=== PATIENT | female | born 1970 | race Caucasian/White ===

== ENCOUNTER 2016-09-26 18:13 | Emergency (ER) | payer OTHER ==
[2016-09-26 19:29] VITALS: BP 121/70
--- NOTE | 2016-09-26 19:41 | UC ---
Throat Pain/Nasal [place] HPI - HPI Summary HPI Summary: cough off and on for 6 weeks, sometimes productive, associated with fatigue and malaise. No shortness of breath or chest pain. Albutero helps with the cough, also using robitussin. Has decreased smoking but has a long hx of smoking. Sore throat x 4 days with difficulty swallowing. Has coughed to the point of vomiting, sometimes has rib pain secondary to cough. - History of Current Complaint Chief Complaint: UCGeneralIllness Stated Complaint: SORE THROAT/COUGH Time Seen by Provider: 09/26/16 19:31 Hx Obtained From: Patient Hx Last Menstrual Period: had ablation Onset/Duration: Gradual Onset, Lasting Weeks - 4+ Severity: Moderate Cough: Nonproductive - for the most part Associated Signs & Symptoms: Positive: Dysphagia, Wheezing, Hoarseness, Sinus Discomfort - Epiglottits Risk Factors Epiglottis Risk Factors: Negative - Allergies/Home Medications Allergies/Adverse Reactions: Allergies Allergy/AdvReac Type Severity Reaction Status Date / Time Codeine Allergy Intermediate Hives Verified 09/26/16 19:29 PMH/Surg Hx/FS Hx/Imm Hx Endocrine History Of: Denies: Diabetes Cardiovascular History Of: Reports: Cardiac Disorders - palpitations, Hypertension Denies: Pacemaker/ICD Respiratory History Of: Reports: Asthma - hx of bronchitis and wheezing with respiratory illnesses. GI/ History Of: Denies: Renal Disease - Surgical History Surgical History: Yes Surgery Procedure, Year, and Place: Tubal Ligation, - Family History Known Family History: Positive: Hypertension - Social History Occupation: Employed Full-time Lives: With Family Alcohol Use: Occasionally Alcohol Amount: 3-4 TIMES PER YR Substance Use Type: None Smoking Status (MU): Light Every Day Tobacco Smoker Type: Cigarettes Amount Used/How Often: < 1/2 PPD Length of Time of Smoking/Using Tobacco: 28 Years Have You Smoked in the Last Year: Yes Household Exposure Type: Cigarettes - Immunization History Most Recent Influenza Vaccination: none Most Recent Tetanus Shot: UNKNOWN Review of Systems Constitutional: Fatigue Skin: Negative Eyes: Negative ENT: Sore Throat Respiratory: Cough Cardiovascular: Palpitations - uses diltiazem to suppress Gastrointestinal: Negative Genitourinary: Negative Motor: Negative Neurovascular: Negative Musculoskeletal: Negative Neurological: Headache - hx of chronic migraine, on topiramate. Psychological: Negative All Other Systems Reviewed And Are Negative: Yes Physical Exam Triage Information Reviewed: Yes Appearance: Ill-Appearing - mildly unwell Vital Signs: Initial Vital Signs Temp 98.7 F 09/26/16 19:24 Pulse 60 09/26/16 19:24 Resp 17 09/26/16 19:24 BP 121/70 09/26/16 19:24 Pulse Ox 100 09/26/16 19:24 Eyes: Positive: Conjunctiva Clear ENT: Positive: Pharyngeal erythema Dental Exam: Normal Neck: Positive: Supple, Nontender, No Lymphadenopathy Respiratory: Positive: Decreased breath sounds - to both bases, mildly prolonged expiration and wheeze., Wheezing Cardiovascular: Positive: RRR, No Murmur Musculoskeletal Exam: Normal Neurological Exam: Normal Neurological: Positive: Alert Psychological Exam: Normal Throat Pain/Nasal Course/Dx - Course Course Of Treatment: zithromax, more regular use of albuterol - Differential Dx/Diagnosis Differential Diagnosis/HQI/PQRI: Laryngitis, Pharyngitis, URI, Other - bronchitis Provider Diagnoses: bronchitis. smoking dependency Discharge - Discharge Plan Condition: Stable Disposition: HOME Prescriptions: Albuterol HFA INHALER* [Ventolin HFA Inhaler*] 2 puff INH Q6H PRN #1 mdi PRN Reason: Wheezing Azithromyxin NAOMI (NF) [Z-Naomi (Zithromax) 250 mg tabs #6] 2 tab PO .TODAY, THEN 1 DAILY #6 tab Patient Education Materials: Acute Bronchitis (ED) Additional Instructions: Use albuterol 4 times daily for several days to help to decrease cough Take full course of zithromax. If the cough does not improve within a week, follow up with your primary care provider for more testing.
== END 2016-09-26 20:01 | disposition home or self-care (01) ==
LOC: UCCORT 18:13
DX: J40 Bronchitis, not specified as acute or chronic (principal); Z88.5 Allergy status to narcotic agent; F17.210 Nicotine dependence, cigarettes, uncomplicated
CPT/HCPCS: 99212; G0463

== ENCOUNTER 2016-11-30 14:04 | Emergency (ER) | payer OTHER ==
[2016-11-30 15:29] VITALS: BP 125/68
--- NOTE | 2016-11-30 15:34 | UC ---
FLU HPI - History of Current Complaint Stated Complaint: FLU SXS Time Seen by Provider: 11/30/16 15:27 Hx Obtained From: Patient Hx Last Menstrual Period: had ablation ?: No Onset/Duration: Gradual Onset - on friday with mild sore throat but hard cough. , Worse Since - with fevers, chills, headache, sorethroat, muscle aches and ongoing cough. Severity Currently: Moderate Severity Initially: Severe Associated Signs & Symptoms: Positive: Fever, Myalgia, Cough, Sore Throat, Nasal Congestion, Headache, Vomiting - post tussive. Related Hx: Smoking - Allergy/Home Medications Allergies/Adverse Reactions: Allergies Allergy/AdvReac Type Severity Reaction Status Date / Time Codeine Allergy Intermediate Hives Verified 11/30/16 15:29 Home Medications: Home Medications Acetaminophen [Extra Strength Acetaminop] 2 tab PO Q6HR PRN 11/30/16 [History Confirmed 11/30/16] PMH/Surg Hx/FS Hx/Imm Hx Endocrine History Of: Denies: Diabetes Cardiovascular History Of: Reports: Cardiac Disorders - palpitations, Hypertension Denies: Pacemaker/ICD Respiratory History Of: Reports: Asthma - hx of bronchitis and wheezing with respiratory illnesses. GI/ History Of: Denies: Renal Disease Neurological History Of: Reports: Migraine - Surgical History Surgical History: Yes Surgery Procedure, Year, and Place: Tubal Ligation, 1998, [place] - Family History Known Family History: Positive: Cardiac Disease, Hypertension, Diabetes - Social History Occupation: Employed Full-time Lives: With Family Alcohol Use: Occasionally Alcohol Amount: 3-4 TIMES PER YR Substance Use Type: None Smoking Status (MU): Light Every Day Tobacco Smoker Type: Cigarettes Amount Used/How Often: < 1/2 PPD Length of Time of Smoking/Using Tobacco: 28 Years Have You Smoked in the Last Year: Yes Household Exposure Type: Cigarettes - Immunization History Most Recent Influenza Vaccination: none Most Recent Tetanus Shot: UNKNOWN Review of Systems Constitutional: Fever Eyes: Eye Redness ENT: Sore Throat, Nasal Discharge Respiratory: Shortness Of Breath, Cough Cardiovascular: Chest Pain Musculoskeletal: Myalgia Neurological: Headache All Other Systems Reviewed And Are Negative: Yes Physical Exam Triage Information Reviewed: Yes Appearance: No Pain Distress, Well-Nourished, Ill-Appearing Vital Signs Reviewed: Yes Eyes: Positive: Conjunctiva Inflamed - mildly OU ENT: Positive: Pharynx normal, Nasal congestion - with allergic changes., TMs normal Neck exam: Normal Respiratory: Positive: Wheezing - expiratory wheeze with coughing Cardiovascular Exam: Normal Musculoskeletal Exam: Normal Neurological Exam: Normal Psychological Exam: Normal Skin Exam: Normal Flu Course/Dx - Differential Dx/Diagnosis Differential Diagnosis/HQI/PQRI: Bronchitis, Upper Respiratory Infection Provider Diagnoses: Acute URI. Acute bronchospasm Discharge - Discharge Plan Condition: Stable Disposition: HOME Prescriptions: predniSONE TAB* [Deltasone TAB*] 20 mg PO DAILY #18 tab Patient Education Materials: Upper Respiratory Infection (ED), Bronchospasm (ED ) Forms: *Work Release Additional Instructions: Smoking Cessation Tricks. 1. Cut down by 1 cigarette per day every 2-3 days. Write the number of smokes for that day on the calendar. 2. Identify triggers to smoking: after meals, on the phone, in the car, with coffee, on breaks at work, etc. 3. Formulate a plan with a behavior to replace the smoking. Fireballs in the car , doodle pad on the phone, flavored creamer for the coffee, go for a walk after a meal or on break at work. 4. For stress smokes do deep breathing relaxation. Breath deep in through the nose hold the breath in for a few seconds then breath out slowly through the mouth. [employer] SINUS RINSE: CHECK OUT AT [employer] Saline nasal wash helps with mucous, allergies and congestion. It can be used up to twice a day or only as needed. Use lukewarm tap water. It does not have to be sterilized or distilled water. Do 1/3 on each side and snort out of both nostrils. Repeat the process with 1/6 of the bottle on each side with snorting in between to finish the solution in the bottle
[2016-11-30] MEDS ORDERED: predniSONE TAB* 20 MG PO ONE (15:41)
[2016-11-30] MEDS ORDERED: Albuterol 2.5 MG/3 ML NEB.SOL* (0.083%) INH ONE (15:41)
[2016-11-30] MEDS ORDERED: Ipratropium 0.5MG/2.5ML NEB* 0.5 MG/2.5 ML NEB.SOLN INH ONE (15:41)
== END 2016-11-30 16:32 | disposition home or self-care (01) ==
LOC: UCCORT 14:04
DX: J06.9 Acute upper respiratory infection, unspecified (principal); J98.01 Acute bronchospasm; R00.2 Palpitations; I10 Essential (primary) hypertension; G43.909 Migraine, unspecified, not intractable, without status migrainosus; Z88.5 Allergy status to narcotic agent; F17.210 Nicotine dependence, cigarettes, uncomplicated
CPT/HCPCS: 87502; 99213; G0463; J7512; J7644

== ENCOUNTER 2017-12-20 15:42 | Emergency (ER) | payer OTHER ==
[2017-12-20 17:26] VITALS: BP 112/70
--- NOTE | 2017-12-20 17:50 | UC ---
Respiratory Complaint HPI - HPI Summary HPI Summary: c/o dry continuous cough for the past week, non responsive to OCD, she states she sprained a muscle on the left side of her ribcage from coughing so much. Denies fever, runny nose, vomiting/diarrhea. She states she stopped smoking these days. - History of Current Complaint Chief Complaint: UCGeneralIllness Stated Complaint: COUGH,CONGESTION Time Seen by Provider: 12/20/17 17:20 Hx Obtained From: Patient Hx Last Menstrual Period: had ablation ?: No Onset/Duration: Gradual Onset, Lasting Days Timing: Constant Severity Initially: Moderate Severity Currently: Moderate Pain Intensity: 6 Alleviating Factors: Bronchodilator Associated Signs And Symptoms: Positive: Negative Related History: Seasonal Allergies - Risk Factors Pulmonary Embolism Risk Factors: Negative Cardiac Risk Factors: Smoking Pseudomonas Risk Factors: Negative Tuberculosis Risk Factors: Negative - Allergies/Home Medications Allergies/Adverse Reactions: Allergies Allergy/AdvReac Type Severity Reaction Status Date / Time codeine Allergy Intermediate Hives Verified 12/20/17 17:24 PMH/Surg Hx/FS Hx/Imm Hx Previously Healthy: Yes Neurological History: Migraine Psychological History: Anxiety - Surgical History Surgical History: Yes Surgery Procedure, Year, and Place: Tubal Ligation, 1998, [place] - Family History Known Family History: Positive: Cardiac Disease, Hypertension, Diabetes - Social History Alcohol Use: Occasionally Alcohol Amount: 3-4 TIMES PER YR Substance Use Type: None Smoking Status (MU): Light Every Day Tobacco Smoker Type: Cigarettes Amount Used/How Often: < 1/2 PPD Length of Time of Smoking/Using Tobacco: 28 Years Have You Smoked in the Last Year: Yes Household Exposure Type: Cigarettes - Immunization History Most Recent Influenza Vaccination: none Most Recent Tetanus Shot: UNKNOWN Review of Systems Respiratory: Cough All Other Systems Reviewed And Are Negative: Yes Physical Exam Triage Information Reviewed: Yes Appearance: Well-Appearing, No Pain Distress, Well-Nourished Vital Signs: Initial Vital Signs Temp 98.5 F 12/20/17 17:20 Pulse 65 12/20/17 17:20 Resp 14 12/20/17 17:20 BP 112/70 12/20/17 17:20 Pulse Ox 100 12/20/17 17:20 Vital Signs Reviewed: Yes Eyes: Positive: Conjunctiva Clear ENT: Positive: Hearing grossly normal, Pharynx normal, TMs normal, Uvula midline Neck: Positive: Supple, Nontender, No Lymphadenopathy Respiratory: Positive: Chest non-tender, Lungs clear, Normal breath sounds, No respiratory distress Cardiovascular: Positive: RRR, No Murmur, Pulses Normal UC Diagnostic Evaluation - Laboratory O2 Sat by Pulse Oximetry: 100 Respiratory Course/Dx - Course Course Of Treatment: acute bronchitis, previous history of reactive airway disease, start flovent diskus as prescribed, oral hydration, continue to abstain from smoking, f/u 2 weeks with PCP - Differential Dx/Diagnosis Provider Diagnoses: acute bronchitis Discharge - Sign-Out/Discharge Documenting (check all that apply): Discharge/Admit/Transfer - Discharge Plan Condition: Stable Disposition: HOME Prescriptions: Fluticasone DISKUS 250 MCG(NF) [Flovent Diskus 250 MCG(NF)] 1 puff INH BID 7 Days #1 diskus Patient Education Materials: Fluticasone (By breathing), Acute Bronchitis (ED) Referrals: Mehnaz Wilson NP [Primary Care Provider] - - Billing Disposition and Condition Condition: STABLE Disposition: HOME
== END 2017-12-20 17:49 | disposition home or self-care (01) ==
LOC: UCCORT 15:42
DX: J20.9 Acute bronchitis, unspecified (principal); Z88.5 Allergy status to narcotic agent; F17.210 Nicotine dependence, cigarettes, uncomplicated
CPT/HCPCS: 99212; G0463

== ENCOUNTER 2018-03-26 15:15 | Emergency (ER) | payer OTHER ==
--- NOTE | 2018-03-26 15:41 | UC ---
Lower Extremity/Ankle HPI - HPI Summary HPI Summary: 47 yo female presents with worsening right knee pain over the last 2 days. She tells me that she has a history of pain in this right knee and has been told in the past that she has arthritis. Has had steroid injections with good relief of pain. 2 days ago she was driving back from [place] and early on in her return trip, she began to have "aching" right knee pain. She says that the pain is made worse but going up and down stairs, squatting, and kneeling on her knee. She took 800mg ibuprofen for pain that did not help. She is ambulatory without assistance or limp. She does smoke daily. Denies numbness, tingling, injury, or SOB. - History of Current Complaint Stated Complaint: RIGHT LEG COMPLAINT Time Seen by Provider: 03/26/18 15:41 Hx Obtained From: Patient Hx Last Menstrual Period: had ablation Severity Initially: Severe Severity Currently: Severe Pain Intensity: 9 Pain Scale Used: 0-10 Numeric Able to Bear Weight: Yes - Allergies/Home Medications Allergies/Adverse Reactions: Allergies Allergy/AdvReac Type Severity Reaction Status Date / Time codeine Allergy Intermediate Hives Verified 03/26/18 15:45 Home Medications: Home Medications Hydroxychloroquine TAB* [Plaquenil TAB*] 400 mg PO BID 03/26/18 [History Confirmed 03/26/18] PMH/Surg Hx/FS Hx/Imm Hx - Additional Past Medical History Additional PMH: Lupus Migraines - Surgical History Surgical History: Yes Surgery Procedure, Year, and Place: Tubal Ligation, 1998, [place] - Family History Known Family History: Positive: Cardiac Disease, Hypertension, Diabetes - Social History Occupation: Employed Full-time Lives: With Family Alcohol Use: Occasionally Alcohol Amount: 3-4 TIMES PER YR Substance Use Type: None Smoking Status (MU): Light Every Day Tobacco Smoker Type: Cigarettes Amount Used/How Often: < 1/2 PPD Length of Time of Smoking/Using Tobacco: 28 Years Have You Smoked in the Last Year: Yes Household Exposure Type: Cigarettes - Immunization History Most Recent Influenza Vaccination: none Most Recent Tetanus Shot: UNKNOWN Review of Systems Constitutional: Negative Skin: Negative Respiratory: Negative Cardiovascular: Negative Motor: Negative Neurovascular: Negative Musculoskeletal: Other: - Right knee pain Neurological: Negative Psychological: Negative All Other Systems Reviewed And Are Negative: Yes Physical Exam - Summary Physical Exam Summary: GENERAL: NAD. WDWN. No pain distress. SKIN: No rashes, sores, lesions, or open wounds. CHEST: No accessory muscle use. Breathing comfortably and in no distress. CV: . Pulses intact popliteal, PT, and DP. Brisk cap refill. MSK: RIGHT KNEE: Mild TTP about the knee joint anterior>posterior. Mild crepitus at patella. FROM. Strength 5/5. No edema or obvious bony deformities. Negative Petey, A/P drawer, Beatris, and varus/valgus stress. Negative Fabby sign. NTTP right calf. No leg edema or varicose veins on right leg. NEURO: Alert. Sensations intact and symmetric B/L LEs PSYCH: Age appropriate behavior. Triage Information Reviewed: Yes Vital Signs: Vital Signs: Temp Pulse Resp BP Pulse Ox 98.6 F 80 16 149/73 100 03/26/18 15:35 03/26/18 15:35 03/26/18 15:35 03/26/18 15:35 03/26/18 15:35 Vital Signs Reviewed: Yes Lower Extremity Course/Dx - Course Course Of Treatment: Suspect right knee pain due to arthritis. She does have risk factors for DVT such as smoking, recent travel, and lupus. She declines XR today and refuses to be transferred to the ER for potential US to eval for DVT. She declines crutches or knee brace. She also declines time off work to RICE her knee. She is asking for pain medication. I advised her to take tylenol for her pain and will refer her to Orthopedics for further eval and treatment of her knee. Strongly advised that if she develops SOB, leg swelling, or increased pain to not wait to go to the ER. Pt agreeable with plan. Wells' Criteria score is 0 for DVT. - Differential Dx/Diagnosis Provider Diagnoses: Right knee pain Discharge - Sign-Out/Discharge Documenting (check all that apply): Patient Departure - Discharge Plan Condition: Stable Disposition: HOME Patient Education Materials: Patellofemoral Pain Syndrome (ED) Referrals: Mehnaz Wilson NP [Primary Care Provider] - Jyoti Kent MD [Medical Doctor] - As Soon As Possible Seemant,MD Bee [Medical Doctor] - As Soon As Possible Additional Instructions: If you develop a fever, shortness of breath, chest pain, new or worsening symptoms - please call your PCP or go to the ED. Your blood pressure was high at todays visit. Please see your primary provider within 4 weeks for recheck and re-evaluation. - Billing Disposition and Condition Condition: STABLE Disposition: Home
[2018-03-26 15:45] VITALS: BP 149/73
== END 2018-03-26 16:07 | disposition home or self-care (01) ==
LOC: UCCORT 15:15
DX: M25.561 Pain in right knee (principal); M32.9 Systemic lupus erythematosus, unspecified; F17.210 Nicotine dependence, cigarettes, uncomplicated; Z53.29 Procedure and treatment not carried out because of patient's decision for other reasons; Z79.899 Other long term (current) drug therapy; Z88.5 Allergy status to narcotic agent
CPT/HCPCS: 99211; G0463

== ENCOUNTER 2018-05-04 10:14 | Day surgery (SDC) | payer OTHER ==
[~2018-05-04 10:14] MED LIST: Buffered Lidocaine 0.9% SYRIN* 5 ML/SYR SYRINGE INTRADERM ONE; Sodium Citrate/Citric Acid* 15 ML UDC PO ONE
[2018-05-04] MEDS ORDERED: Sodium Citrate/Citric Acid* 15 ML UDC ONE (10:36)
[2018-05-04] MEDS ORDERED: ceFAZolin 2 GM in NS PREMIX(*) 2 GM/100 ML BAG IVPB ONE (10:39)
[2018-05-04] MEDS ORDERED: Midazolam* 1 MG/ML 2 ML VIAL (2 MG) ONE (11:15)
[2018-05-04] MEDS ORDERED: fentaNYL* 50 MCG/ML 2 ML VIAL (100 MCG VIAL) ONE ×2 (11:15→13:05)
[2018-05-04] MEDS ORDERED: Bupivacaine 0.5% SDV PF* 30ML VIAL ONE (11:25)
[2018-05-04] MEDS ORDERED: Propofol* 10 MG/ML 20 ML BTL IV PUSH ONE (11:26)
[2018-05-04] MEDS ORDERED: Ketorolac INJ* 30 MG/ML 1 ML VIAL IV PRN (13:00)
[2018-05-04] MEDS ORDERED: Naloxone* 0.4 MG/ML 1 ML VIAL IV PRN (13:00)
[2018-05-04] MEDS ORDERED: Ondansetron INJ* 2 MG/ML VIAL IV PRN (13:00)
[2018-05-04] MEDS ORDERED: Ketorolac INJ* 30 MG/ML 1 ML VIAL ONE (13:05)
[2018-05-04] MEDS: fentaNYL* 50 MCG/ML 2 ML VIAL (100 MCG VIAL) IV PRN ×3 (13:16→13:41)
[2018-05-04 14:15] VITALS: BP 131/82
--- NOTE | 2018-05-05 03:55 | OP ---
DATE OF OPERATION: 05/04/18 - [facility] DATE OF : 72 SURGEON: Jim Molina MD EXTRACT OPERATOR: ZAHRAA Austin PRE-OP DIAGNOSIS: Chronic insertional tendinosis, right Achilles with large posterior calcaneal spur. POST-OP DIAGNOSIS: Chronic insertional tendinosis, right Achilles with large posterior calcaneal spur. OPERATIVE PROCEDURE: Calcaneal ostectomy, right side with advancement of the Achilles tendon. DESCRIPTION OF PROCEDURE: The patient was taken to the operating room where prone positioning used, we made an 8 cm longitudinal incision just medial to the Achilles and the posterior calcaneus. We traced with a 15 blade around the insertion the Achilles, reflecting it off the posterior aspect of the calcaneus. We then used a microsagittal saw to remove the large retrocalcaneal bursa with the large calcaneal spur. We then exposed proximally near the gastroc junction and a 6 cm V incision was made through the Achilles. Just the tendinous portion was incised with distal retraction regained about 2.5 cm of length. We then repaired the V- Y portion with interrupted 2-0 Vicryl suture. We then reattached the tendon distally using #1 Ethibond sutures through bone. Two pairs of sutures were passed through the calcaneus, exiting the plantar cortex and brought up into the wound. We then tied both of these over the posterior calcaneus and this reattached the tendon. We then irrigated thoroughly closing the subcu tissue with 2-0 Vicryl, jenise for the skin and a compression dressing plaster splint applied. [id number]/[facility] #: [id number] PADMINI
== END 2018-05-04 14:17 | disposition home or self-care (01) ==
LOC: OR 10:14
PROVIDERS: ATTEND Orthopaedic Surgery
DX: M76.61 Achilles tendinitis, right leg (principal); M77.31 Calcaneal spur, right foot; Z72.0 Tobacco use; I73.00 Raynaud's syndrome without gangrene; M32.9 Systemic lupus erythematosus, unspecified
CPT/HCPCS: A9270-GY; C1776; J0690; J1885; J2250; J2704; J3010

== ENCOUNTER 2019-06-13 13:23 | Emergency (ER) | payer OTHER ==
--- OUTSIDE RECORDS SUMMARY | 2019-06-13 14:01 | XMS REPORT | Continuity of Care Document ---
:1970 External Reference #:[id number] Author Name Lyric Porras MD, PHD Address [address] [place] [address], [address] [place] [id number] Care Team Providers Name Role Phone Kenney Mishra MD - Neurology Care Team Information Brewery Pumper [phone] Eliel Son MD - Surgery Care Team Information [employer] [phone] Lyric Porras MD, PHD - Family Care Team Information [employer] Medicine Problems Active Problems Provider Date Benign essential hypertension Lilia Desir MD Onset: 09/05/2012 Paroxysmal supraventricular Simon, Kalie Mcclain, MSN, Onset: 05/31/2013 tachycardia WELDING OPERATOR Hyperlipidemia Chyna Parker, PARTS SPECIALIST Onset: 08/01/2011 Anxiety state Chyna Parker, PARTS SPECIALIST Onset: 08/17/2011 Localized, primary osteoarthritis of Kenney Vail MD, FACS Onset: 01/28 the shoulder region Brachial neuritis Kenney Vail MD, FACS Onset: 01/28/2013 Displacement of cervical Kenney Vail MD, FACS Onset: 03/10/2013 intervertebral disc without myelopathy Cervical spondylosis without Kenney Vail MD, FACS Onset: 03/10/2013 myelopathy Enthesopathy of hip region Kenney Vail MD, FACS Onset: 05/11/2014 Malaise and fatigue Pete Cordova M.D., Onset: 06/01/2014 [facility] Low back pain Kenney Vail MD, FACS Onset: 07/27/2014 Localized, primary osteoarthritis Kenney Vail MD, FACS Onset: 2013 Tobacco user Katie Wilson WELDING OPERATOR Onset: 11/20/2016 Systemic lupus erythematosus Katie Wilson, WELDING OPERATOR Onset: 12/10/2017 Note: Document: 12/04/17 - Consult Rheumatology Female climacteric state Katie Wilson FNP Onset: 04/20/2018 Migraine Katie Wilson, WELDING OPERATOR Onset: 11/08/2018 Achilles tendinitis Katie Wilson WELDING OPERATOR Onset: 02/28/2019 Note: right Document: 01/06/19 - Orthopedic Follow Up Note Cervical spondylosis Lyric Porras MD, PHD Onset: 03/30/2019 Social History Type Date Description Comments Sex Unknown Tobacco Use Start: Unknown currently smokes 1/2 Pack Daily Cigarette Use Pack Years - 20 ETOH Use Drinks Alcoholic Beverages Rarely Tobacco Use Start: Unknown Patient is a current smoker, smokes every day Tobacco Use Start: Unknown Smokes 1/2 PPD Smoking Status Reviewed: 05/03/19 Smokes 1/2 PPD Allergies, Adverse Reactions, Alerts Active Allergies Reaction Severity Comments Date Codeine hives 01/28/2013 Inactive Allergies NKDA 02/26/2012 Medications Active Medications SIG Qnty Indications Ordering Date Provider Amoxicillin 1 tab by mouth 14tabs J01.90 Lyric Porras, 05/03/2019 875mg twice a day , PHD Tablets Saline Nasal [place] 2 sprays 1units J01.90 Lyric Porras, 05/03/2019 intranasal every 2 , PHD 0.65% Solution hours congestion Gabapentin 1-2 by mouth three 60caps N95.1 Lyric Porras, 05/03/2019 400mg times a day at , PHD Capsules bedtime Mucinex 1 tab by mouth 30tabs J01.90 Lyric Porras, 05/03/2019 600mg Tablets twice a day , PHD ER 12HR congestion take with lots of fluids Clonidine HCL take 1 tablet by 180tabs I10 Lyric Porras, 03/30/2019 0.1mg oral route 2 times , PHD Tablets every day Nicotine at bedtime 28units Z72.0 Lyric Porras, 03/30/2019 14mg/24HR , PHD Patches 24HR Vitamin D3 1 cap by mouth 90caps N95.1 Lyric Porras, 02/24/2019 5000Unit every day after PHD NADER Capsules meals Ranitidine 150 1 tab by mouth 60tabs M36.8 Lyric Porras, 02/24/2019 Maximum Strength once a day as MD PHD needed with motrin 150mg Tablets or for heartburn Ventolin HFA 2 puffs inhalation 1units J98.01 Lyric Porras, 01/27/2018 every 4 hours MD PHD 108(90Base) mcg/Act wheezing or Aerosol difficulty breathing Plaquenil one PO bid 30tabs Clune, 10/23/2017 200mg Jenniferleigh, Tablets WELDING OPERATOR Ibuprofen one by mouth every 90tabs Lyric Porras, 06/23/2014 800mg 8 hours as needed , Tablets Meloxicam 1 tab by mouth at Unknown 15mg night Tablets History Medications Gabapentin take 1 to 3 90caps N95.1 Lyric Porras, 02/24/2019 - 100mg capsules by mouth , PHD 05/03/2019 Capsules at bedtime if needed for Sweats And Sleep Medications Administered in Office Medication SIG Qnty Indications Ordering Provider Date Depomedrol 40mg/1cc Kenney Vail MD, 08/01/2014 (methylprednisolone acetate) FACS Injection Depomedrol 40mg/1cc Kenney Vail MD, 05/11/2014 (methylprednisolone acetate) FACS Injection Immunizations Description No Information Available Vital Signs Date Vital Result Comment 05/03/2019 1:13pm BP Systolic 128 mmHg BP Diastolic 83 mmHg Body Temperature 98.0 F Heart Rate 74 /min Respiratory Rate 16 /min Height 66 inches 5'6" Weight 161.00 lb BMI (Body Mass Index) 26.0 kg/m2 BSA (Body Surface Area) 1.82 m2 [place] body weight in kilograms 59 kg O2 % BldC Oximetry 98 % 03/30/2019 8:21am BP Systolic 135 mmHg BP Diastolic 89 mmHg Body Temperature 96.8 F Heart Rate 83 /min Respiratory Rate 16 /min Height 66 inches 5'6" Weight 161.00 lb BMI (Body Mass Index) 26.0 kg/m2 BSA (Body Surface Area) 1.82 m2 [place] body weight in kilograms 59 kg O2 % BldC Oximetry 98 % Results Description No Information Available Procedures Date Code Description Status 03/30/2019 07835 EKG-Tracing And Report Completed 12/06/2016 [id number] Mammogram Completed 02/15/2016 [id number] Colonoscopy Completed Medical Devices Description No Information Available Encounters Type Date Location Provider Dx Diagnosis Office Visit 03/30/2019 Family Medicine Lyric Porras, N95.1 Menopausal and 8:30a Rito Velez MD, PHD female climacteric states M36.8 Systemic disord of conn tiss in oth diseases classd [facility] Z72.0 Tobacco use I10 Essential (primary) hypertension M47.892 Other spondylosis, cervical region I47.1 Supraventricular tachycardia E55.9 Vitamin D deficiency, unspecified R00.0 Tachycardia, unspecified R00.2 Palpitations Office Visit 02/24/2019 3:30p Family Medicine Chiquita, N95.1 Menopausal and Rito Gunter MD, female climacteric PHD states M36.8 Systemic disord of conn tiss in oth diseases classd [facility] Z72.0 Tobacco use Assessments Date Code Description Provider 05/03/2019 J01.90 Acute sinusitis, unspecified Lyric Porras MD, PHD 05/03/2019 N95.1 Menopausal and female climacteric states Lyric Porras MD, PHD 05/03/2019 Z72.0 Tobacco use Lyric Porras MD, PHD 03/30/2019 N95.1 Menopausal and female climacteric states Lyric Porras MD, PHD 03/30/2019 M36.8 Systemic disorders of connective tissue Lyric Porras MD , PHD in other diseases classified elsewhere 03/30/2019 Z72.0 Tobacco use Lyric Porras MD, PHD 03/30/2019 I10 Essential (primary) hypertension Lyric Porras MD, PHD 03/30/2019 M47.892 Other spondylosis, cervical region Lyric Porras MD, PHD 03/30/2019 I47.1 Supraventricular tachycardia Lyric Porras MD, PHD 03/30/2019 E55.9 Vitamin D deficiency, unspecified Lyric Porras MD, PHD 03/30/2019 R00.0 Tachycardia, unspecified Lyric Porras MD, PHD 03/30/2019 R00.2 Palpitations Lyric Porras MD, PHD 02/24/2019 N95.1 Menopausal and female climacteric states Lyric Porras MD, PHD 02/24/2019 M36.8 Systemic disorders of connective tissue Lyric Porras MD , PHD in other diseases classified elsewhere 02/24/2019 Z72.0 Tobacco use Lyric Porras MD, PHD Plan of Treatment 05/03/2019 - Lyric Porras MD, PHDJ01.90 Acute sinusitis, unspecifiedNew Medication:Amoxicillin 875 mg - 1 tab by mouth twice a daySaline Nasal [place] 0.65 % - 2 sprays intranasal every 2 hours congestionMucinex 600 mg - 1 tab by mouth twice a day congestion take with lots of dprnryO81.1 Menopausal and female climacteric statesNew Medication:Gabapentin 400 mg - 1-2 by mouth three times a day at wfhmcxeY92.0 Tobacco use Functional Status Functional Condition Comment Date Status Glasses Active Mental Status Description No Information Available Referrals Description No Information Available
[2019-06-13 14:17] VITALS: BP 123/78
--- NOTE | 2019-06-13 14:37 | UC ---
UC General HPI - HPI Summary HPI Summary: ONSET 4 DAYS AGO WITH NAUSEA, VOMITING ON AND OFF. SORE THROAT, CHEST [place]O, FEVER 104 LAST NIGHT. CHILLS AND BODYACHES. VOMITED TWICE TODAY. NO DIARRHEA IN TWO DAYS. - History of Current Complaint Chief Complaint: UCGeneralIllness Stated Complaint: FEVER, VOMITING, SORE THROAT Time Seen by Provider: 06/13/19 14:15 Hx Obtained From: Patient Hx Last Menstrual Period: UTERINE ABLATION Onset/Duration: Sudden Onset, Lasting Days Onset Severity: Moderate Current Severity: Moderate Pain Intensity: 4 Associated Signs & Symptoms: Positive: Diarrhea, Fever, Headache, Vomiting - Allergy/Home Medications Allergies/Adverse Reactions: Allergies Allergy/AdvReac Type Severity Reaction Status Date / Time codeine Allergy Intermediate Hives Verified 06/13/19 14:06 Home Medications: Home Medications Acetaminophen TAB* [Tylenol TAB*] 650 mg PO Q4H PRN 06/13/19 [History Confirmed 06/13/19] Bp Med, ? Name 06/13/19 [History] Meloxicam 7.5 mg PO DAILY 06/13/19 [History Confirmed 06/13/19] PMH/Surg Hx/FS Hx/Imm Hx Previously Healthy: Yes - Surgical History Surgical History: Yes Surgery Procedure, Year, and Place: TUBAL LIGATION 1998 [place]. ACHILLIE'S TENDON REPAIR. UTERINE ABLATION - Family History Known Family History: Positive: Cardiac Disease, Hypertension, Diabetes - Social History Alcohol Use: Occasionally Alcohol Amount: 2 DRINKS/WEEK Substance Use Type: None Smoking Status (MU): Light Every Day Tobacco Smoker Type: Cigarettes Amount Used/How Often: < 1/2 PPD FOR 20 YRS Length of Time of Smoking/Using Tobacco: 20 YRS Have You Smoked in the Last Year: Yes Household Exposure Type: Cigarettes - Immunization History Most Recent Influenza Vaccination: none Most Recent Tetanus Shot: UNKNOWN Review of Systems All Other Systems Reviewed And Are Negative: Yes Constitutional: Positive: Fever, Fatigue Skin: Positive: Rash ENT: Positive: Sore Throat Gastrointestinal: Positive: Vomiting, Diarrhea, Nausea Neurological: Positive: Headache Is Patient Immunocompromised?: No Physical Exam Triage Information Reviewed: Yes Appearance: Well-Nourished, Ill-Appearing, Pain Distress Vital Signs: Initial Vital Signs Temp 99.4 F 06/13/19 14:11 Pulse 89 06/13/19 14:11 Resp 16 06/13/19 14:11 BP 123/78 06/13/19 14:11 Pulse Ox 100 06/13/19 14:11 Vital Signs Reviewed: Yes Eye Exam: Normal ENT: Positive: Pharyngeal erythema, TMs normal Dental Exam: Normal Neck exam: Normal Respiratory Exam: Normal Respiratory: Positive: Chest non-tender, Lungs clear, Normal breath sounds Cardiovascular Exam: Normal Cardiovascular: Positive: RRR, No Murmur, Pulses Normal Abdominal Exam: Normal Abdomen Description: Positive: Nontender, No Organomegaly, Soft Bowel Sounds: Positive: Present Musculoskeletal Exam: Normal Neurological Exam: Normal Psychological Exam: Normal Skin Exam: Normal Course/Dx - Course Course Of Treatment: hx obtained, exam performed, meds reviewed, - Diagnoses Provider Diagnosis: Viral syndrome Discharge ED - Sign-Out/Discharge Documenting (check all that apply): Patient Departure All imaging exams completed and their final reports reviewed: No Studies - Discharge Plan Condition: Stable Disposition: HOME Patient Education Materials: Viral Syndrome (ED) Referrals: Lyric Porras MD [Primary Care Provider] - Additional Instructions: 1. rest, increase fluids 2. Ibuprofen or tylenol for pain and fever. 3. follow up with your PC as needed. - Billing Disposition and Condition Condition: STABLE Disposition: Home
[2019-06-13 14:58] LABS: Influenza A Molecular NEGATIVE (Negative); Influenza B Molecular NEGATIVE (Negative)
== END 2019-06-13 15:31 | disposition home or self-care (01) ==
LOC: UCCORT 13:23
DX: B34.9 Viral infection, unspecified (principal); R11.2 Nausea with vomiting, unspecified; J02.9 Acute pharyngitis, unspecified; M79.10 Myalgia, unspecified site; R51 Headache; R53.83 Other fatigue; R19.7 Diarrhea, unspecified; R21 Rash and other nonspecific skin eruption; F17.210 Nicotine dependence, cigarettes, uncomplicated; Z88.5 Allergy status to narcotic agent
CPT/HCPCS: 99211; G0463